=== PATIENT | male | born 1955 | race Caucasian/White ===

== ENCOUNTER → 2021-06-30 15:49 | Outpatient (CLI) | payer MEDICARE, MEDICAID, SELFPAY ==
--- NOTE | 2021-06-30 15:00 | PET_ITS ---
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 COMPARISON EXAMINATION: MRI of the right femur report dated 04/30/21 TECHNIQUE: Following the intravenous administration of 17.8 mCi of F-18 deoxyglucose via the left wrist, multiplanar image acquisitions of the neck, chest, abdomen and pelvis to level of mid thigh, obtained at one hour post radiopharmaceutical administration contemporaneously interpreted with the current CT of the neck, chest, abdomen and pelvis, to level of mid thigh, dated 06/30/21 via coregistration and MRI of the right femur report dated 04/30/21 reveals: BLOOD GLUCOSE LEVEL:?? 117 mg/dl? FINDINGS: 1. There is no quantitative scintigraphic evidence of abnormal increased glucose metabolism on meticulous inspection of whole body acquisitions to include all three axis reconstructions. 2. Normal physiologic distribution of the radiopharmaceutical is apparent in the hepatic and splenic parenchyma, both renal units, bladder and visualized intestinal tract. The visualized portion of the cerebral cortical-subcortical structures demonstrate symmetric and preserved glucose metabolism. Diffuse radiopharmaceutical concentration is noted in all four quadrants of the abdomen and pelvis. Prominent muscle tension artifact is defined in the posterior compartment of the bilateral lower extremities. Asymmetric increased tracer uptake is noted in the distribution of the right masseter musculature. Prominent radiopharmaceutical concentration is identified in the left ventricular myocardium commensurate with the [place]. Pertinent CT findings are as follows: CHEST: There is atherosclerotic calcification defined in the thoracic aorta without evidence of dilatation-aneurysm formation. Coronary arterial calcification is observed. Bilateral axillary soft tissue densities with fatty hilus are ametabolic. Mediastinal soft tissue reveals no evidence of increased tracer uptake. There are no parenchymal densities-nodules defined in the right and left hemithorax demonstrating discernible increased tracer uptake. Mediastinal and bilateral subcentimeter axillary soft tissue densities are ametabolic. ABDOMEN AND PELVIS: There is atherosclerotic calcification defined in the abdominal aorta without evidence of dilatation-aneurysm formation. Abdominal-pelvic arterial calcification is observed. A fat containing right inguinal hernia is noted. Right and left inguinal soft tissue densities with fatty hilus are ametabolic. The prostate gland is prominent in size without evidence of increased tracer uptake. SKELETAL: Degenerative changes are noted in the cervical, thoracic and lumbar spine without evidence of increased radiopharmaceutical concentration. There is diffuse demineralization identified throughout the axial skeletal structures. The apparent primary tumor involving the distal right femur was not included in the field of view-image acquisition. PET/PET/CT Tumor Base -Thigh Init IMPRESSION: 1. NEGATIVE EXAMINATION. There is no definitive quantitative scintigraphic evidence of metastatic/viable neoplasm. Electronic Signature David Mendoza D.O. Accurate Quantification of SUVs for this report are calculated using the exclusive [employer]. (U.S. Patent No. [id number] 983). Standardization and correction of the FDG SUV metric via [employer] technology allow for vendor non-specific objective quantitative examination comparison and optimization of the sensitivity and specificity of the FDG PET-CT examination. Accurate Quantification of SUVs for this report are calculated using the exclusive [employer]. (U.S. Patent No. [id number]). Standardization and correction of the FDG SUV metric via [employer] technology allow for vendor non-specific objective quantitative examination comparison and optimization of the sensitivity and specificity of the FDG PET-CT examination. Electronically Signed: David Mendoza DO at 22:53 EST Tel , Service support ,
== END ==
PROVIDERS: PCP Internal Medicine Infectious Disease; Referring Provider Internal Medicine Infectious Disease; Visit Provider Internal Medicine Infectious Disease
DX: C40.21 Malignant neoplasm of long bones of right lower limb (principal); R93.6 Abnormal findings on diagnostic imaging of limbs
CPT/HCPCS: 78815; A9552

== ENCOUNTER → 2023-05-09 | Outpatient (CLI) | payer MEDICARE, MEDICAID, SELFPAY ==
--- NOTE | 2023-05-09 | ASPOS_PTH ---
PATIENT: TED NELSON LOC: [facility] U#:[id number] AGE/SX: 67/M ROOM: RE05/09/[address]: Dr. John Nixon MD : 1955 BED: DIS: 05/09/2023 SPEC #: [id number] RECD: 05/09/23 12:03 STATUS: MARTIN RERomna #: [id number] AYSE: 05/09/23 00:[address]: John Nixon DEPT: CYTOLOGY RECD BY: Nikko Che ENTERED: 05/09/23 12:04 SP TYPE: ASP HERE OTHR DR: Dr. Steven Bonner MD Tissues: Parotid gland, NOS Procedures: Surgery Specimen Level IV Cytology Other Fine Needle Asp on Site HEADER OPERATION: Fine needle aspiration right cheek mass PRE-OP DIAGNOSIS: Right cheek mass TISSUE SUBMITTED: FNA right cheek mass DIAGNOSIS CYTOLOGY Fine needle aspiration, right cheek mass (smears and cell block): Consistent with benign mixed tumor of salivary gland. AM:jose 05/10/2023 COMMENT Case has been reviewed in consultation with Dr. Abdullahi who concurs with the above diagnosis. IDC:SJ CYTOLOGY STUDY Slides are reviewed. CYTOLOGY GROSS Received is 0.2 ml of yellow-harrison material labeled with the patient's name, and designated right cheek mass. Four imprints and two paps are made from the submitted fluid and the rest is added to CytoLyt for cell block preparation. Submitted for cytology study. / AM:jose 05/09/2023 TC:5 CPT: 57664, 58852, 30059, 05972
== END | disposition home or self-care (01) ==
LOC: LAB 09:15
PROVIDERS: PCP Internal Medicine Infectious Disease; Referring Provider Otolaryngology Otolaryngology/Facial Plastic Surgery; Visit Provider Otolaryngology Otolaryngology/Facial Plastic Surgery
DX: R22.0 Localized swelling, mass and lump, head (principal)
CPT/HCPCS: 10021; 88161; 88305

== ENCOUNTER 2025-08-13 10:10 | Day surgery (SDC) | payer MEDICARE, MEDICAID, SELFPAY ==
--- NOTE | 2025-08-01 20:25 | PAT.ANE_ITS ---
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 When Was Last Pacemaker Check QUESTION #4 FULL TEXT: You/Your Family Experience fever (hyperthermia) with Anesthesia Last Oral Intake Last Oral intake: Last Oral Intake NPO since Meds taken in AM with sips of water? Meds patient instructed to take am of surgery PONV PONV - supervisor receiving and processing: PONV - supervisor receiving and processing Female No 07/31/25 11:27 HX of Motion Sickness No 07/31/25 11:27 HX of N/V After Surgery No 07/31/25 11:27 Non-Smoker No 07/31/25 11:27 Duration of Surgery greater Yes 07/31/25 11:27 than 60 minutes Number of Risk Factors 1 07/31/25 11:27 PONV Score Low Risk 07/31/25 11:27 Respiratory Assessment Respiratory Assessment - supervisor receiving and processing: Respiratory Tract Infection Hx - supervisor receiving and processing Hx Respiratory Tract Infection No 07/31/25 11:27 STOP Sleep Apnea STOP Sleep Apnea - supervisor receiving and processing: STOP Sleep Apnea - supervisor receiving and processing Hx Hypertension Yes 07/31/25 11:27 Hx Sleep Apnea No 07/31/25 11:27 CPAP BIPAP Do you snore loudly (louder No 07/31/25 11:27 than talking or can be heard Do you often feel tired/ No 07/31/25 11:27 fatigued/ sleepy during daytime? Has anyone observed you stop No 07/31/25 11:27 breathing during sleep? STOP Results Negative 07/31/25 11:27 QUESTION #5 FULL TEXT : Do you snore loudly (louder than talking or can be heard through closed doors)? 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 Specify any problems Hx of Preganancy in last 3 N/A 07/31/25 11:27 Months Nurse Filling Out Transfusion DSCHRIBER 07/31/25 11:27 & Questions: Date: 07/31/25 07/31/25 11: Time: 07/31/25 11:27 Patient unable to answer at this time (ie. confused, unrespo /Reproduction History /Reproductive History - supervisor receiving and processing: /Reproductive Hx- supervisor receiving and processing Hx Now Gestational Age (in weeks): EDC: Hx Hx Para Hx Section SAB Does the father of the baby or his family experience fever w Father of the baby Malignant Hypertension history comment PFS Medical History (Updated 07/31/25 @ 11:58 by Joann Gonzalez) Uses wheelchair Lives in detention Wears glasses Wears dentures Bipolar disorder Injury of back TIA (transient ischemic attack) Injury of head and neck Dietary restriction Smoker COPD (chronic obstructive pulmonary disease) Shortness of breath on exertion Cardiology follow-up encounter Thyroid disease Insulin dependent diabetes mellitus Dementia Parkinson disease Hypertension A-fib CKD (chronic kidney disease) Home Medications ?Medication ?Instructions ?Recorded ?Last Taken ?Type acetaminophen 500 mg capsule 1,000 mg PO Q8 06/18/25 U nknown History amiodarone 200 mg tablet 200 mg PO QDAY 06/18/25 Unkn own History apixaban 5 mg tablet (Eliquis) 5 mg PO BID 06/18/25 Un known History aripiprazole 15 mg tablet (Abilify) 15 mg PO QHS 06/18 Unknown History aspirin 81 mg chewable tablet 1 tab PO QDAY 06/18/25 U nknown History atorvastatin 40 mg tablet (Lipitor) 40 mg PO QHS 06/18 Unknown History bumetanide 1 mg tablet 1 mg PO BID 06/18/25 Unknown History carbidopa 25 mg-levodopa 100 mg 1 tab PO TID 06/18/25 Unknown History tablet (Sinemet) cholecalciferol (vitamin D3) 1,250 1,250 mcg PO .QOW 1 Unknown History mcg (50,000 unit) capsule cyanocobalamin (vitamin B-12) 500 2,500 mcg PO QDAY Unknown History mcg tablet (B-12 DOTS) divalproex 500 mg tablet,extended 2,000 mg PO HS 06/18 Unknown History release 24 hr (Depakote ER) famotidine 20 mg tablet 20 mg PO QDAY 06/18/25 Unkno wn History ferrous sulfate 325 mg (65 mg 325 mg PO QDAY 06/18/25 Unknown History iron) tablet (FeroSul) guaifenesin 400 mg tablet 400 mg PO BID 06/18/25 Unkno wn History insulin aspart U-100 100 unit/mL 1 sliding scale dose subcut 06/18/25 Unknown History (3 mL) subcutaneous pen (Novolog USEASDIRECTD FlexPen U-100 Insulin aspart) insulin glargine 100 unit/mL (3 40 unit subcut QPM Unknown History mL) subcutaneous pen (Lantus Solostar U-100 Insulin) isosorbide mononitrate 60 mg 60 mg PO QAM 06/18/25 Unk nown History tablet,extended release 24 hr levetiracetam 500 mg tablet 500 mg PO BID 06/18/25 Unk nown History (Keppra) magnesium 200 mg tablet 400 mg PO QDAY 06/18/25 Unkn own History melatonin 3 mg tablet 9 mg PO QHS 06/18/25 Unknown History metoprolol succinate 25 mg 25 mg PO QDAY 06/18/25 Unkn own History tablet,extended release 24 hr nitroglycerin 0.4 mg sublingual 0.4 mg sublingual Q5M PRN chest 06/18/25 Unknown History tablet (Nitrostat) pain sitagliptin phosphate 50 mg tablet 50 mg PO QDAY 06/18 Unknown History (Januvia) tamsulosin 0.4 mg capsule 0.8 mg PO QHS 06/18/25 Unkno wn History TRIAD HYDROPHILIC PASTE 07/31/25 Unknown History insulin aspart U-100 100 unit/mL 6 unit subcut BID 06/15 Unknown History subcutaneous solution (Novolog U-100 Insulin aspart) levothyroxine 25 mcg capsule 25 mcg PO DAILY 07/31/25 Unknown History mglabozi-tczbsgznf-qpmofbblj 3.5 4 drp EACH EAR Q8H Unknown History mg/mL-10,000 unit/mL-1 % ear solution Allergy/AdvReac Type Severity Reaction Status Date / Time Penicillins Allergy Intermediate Other Verified 07/03/25 14:05 sodium Allergy Unknown PT UNSURE Verified 07/31/25 10:29 OF REACTION Social History Smoking Status: Light Smoker (<10/day) Audit: Pertinent Findings Pertinent Findings EKG Perinent findings: September 22, 2023. Normal sinus rhythm Stress test pertinent findings: September 02, 2022. Normal LV size and systolic function. No EKG signs of ischemia. EF of 51%. Echo (EF%) pertinent findings: 08/19/2022. EF is 60 to 65%. RVSP is 28 to 34 mmHg. Heart catheterization pertinent findings: 08/17/2021. LAD has mild diffuse disease. Consult pertinent findings: 12/11/2024. Dr. Sullivan. 1. Atrial fibrillation-continue amiodarone and apixaban and Toprol. Continue exercise and losing weight. 2. Hypertension-continue current meds. 3. COPD-increase exercise on a weekly basis. 4. Stroke?continue current medications. 5. Diabetes-continue meds Recommendation Anesthesia Recommendation Anesthesia recommendation: OPTIMIZED for anesthesia
--- NOTE | 2025-08-12 12:01 | PAT.ANESEVAL ---
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 When Was Last Pacemaker Check QUESTION #4 FULL TEXT: You/Your Family Experience fever (hyperthermia) with Anesthesia Last Oral Intake Last Oral intake: Last Oral Intake NPO since Meds taken in AM with sips of water? Meds patient instructed to take am of surgery PONV PONV - check out cashier: PONV - check out cashier Female No 07/31/25 11:27 HX of Motion Sickness No 07/31/25 11:27 HX of N/V After Surgery No 07/31/25 11:27 Non-Smoker No 07/31/25 11:27 Duration of Surgery greater Yes 07/31/25 11:27 than 60 minutes Number of Risk Factors 1 07/31/25 11:27 PONV Score Low Risk 07/31/25 11:27 Respiratory Assessment Respiratory Assessment - check out cashier: Respiratory Tract Infection Hx - check out cashier Hx Respiratory Tract Infection No 07/31/25 11:27 STOP Sleep Apnea STOP Sleep Apnea - check out cashier: STOP Sleep Apnea - check out cashier Hx Hypertension Yes 07/31/25 11:27 Hx Sleep Apnea No 07/31/25 11:27 CPAP BIPAP Do you snore loudly (louder No 07/31/25 11:27 than talking or can be heard Do you often feel tired/ No 07/31/25 11:27 fatigued/ sleepy during daytime? Has anyone observed you stop No 07/31/25 11:27 breathing during sleep? STOP Results Negative 07/31/25 11:27 QUESTION #5 FULL TEXT : Do you snore loudly (louder than talking or can be heard through closed doors)? 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 Specify any problems Hx of Preganancy in last 3 N/A 07/31/25 11:27 Months Nurse Filling Out Transfusion DSCHRIBER 07/31/25 11:27 & Questions: Date: 07/31/25 07/31/25 11: Time: 07/31/25 11:27 Patient unable to answer at this time (ie. confused, unrespo /Reproduction History /Reproductive History - check out cashier: /Reproductive Hx- check out cashier Hx Now Gestational Age (in weeks): EDC: Hx Hx Para Hx Section SAB Does the father of the baby or his family experience fever w Father of the baby Malignant Hypertension history comment Active Medications Active Medications: Current Medications Generic Name Dose Route Start Last Admin Trade Name Freq PRN Reason Stop Dose Admin Vancomycin HCl 1,750 mg/ 535 mls @ 250 mls/hr 08/13/25 12:00 Sodium Chloride IV 08/13/25 14:08 INTRAOP [facility] Medical History (Updated 07/31/25 @ 11:58 by Joann Gonzalez) Uses wheelchair Lives in longterm Wears glasses Wears dentures Bipolar disorder Injury of back TIA (transient ischemic attack) Injury of head and neck Dietary restriction Smoker COPD (chronic obstructive pulmonary disease) Shortness of breath on exertion Cardiology follow-up encounter Thyroid disease Insulin dependent diabetes mellitus Dementia Parkinson disease Hypertension A-fib CKD (chronic kidney disease) Home Medications ?Medication ?Instructions ?Recorded ?Last Taken ?Type acetaminophen 500 mg capsule 1,000 mg PO Q8 06/18/25 Unknown History amiodarone 200 mg tablet 200 mg PO QDAY 06/18/25 Unknown History apixaban 5 mg tablet (Eliquis) 5 mg PO BID 06/18/25 Unknown History aripiprazole 15 mg tablet (Abilify) 15 mg PO QHS 06/18/25 Unknown History aspirin 81 mg chewable tablet 1 tab PO QDAY 06/18/25 Unknown History atorvastatin 40 mg tablet (Lipitor) 40 mg PO QHS 06/18/25 Unknown History bumetanide 1 mg tablet 1 mg PO BID 06/18/25 Unknown History carbidopa 25 mg-levodopa 100 mg 1 tab PO TID 06/18/25 Unknown History tablet (Sinemet) cholecalciferol (vitamin D3) 1,250 1,250 mcg PO .QOW 06/18/25 Unknown History mcg (50,000 unit) capsule cyanocobalamin (vitamin B-12) 500 2,500 mcg PO QDAY 06/18/25 Unknown History mcg tablet (B-12 DOTS) divalproex 500 mg tablet,extended 2,000 mg PO HS 06/18/25 Unknown History release 24 hr (Depakote ER) famotidine 20 mg tablet 20 mg PO QDAY 06/18/25 Unknown History ferrous sulfate 325 mg (65 mg 325 mg PO QDAY 06/18/25 Unknown History iron) tablet (FeroSul) guaifenesin 400 mg tablet 400 mg PO BID 06/18/25 Unknown History insulin aspart U-100 100 unit/mL 1 sliding scale dose subcut 06/18/25 Unknown History (3 mL) subcutaneous pen (Novolog USEASDIRECTD FlexPen U-100 Insulin aspart) insulin glargine 100 unit/mL (3 40 unit subcut QPM 06/18/25 Unknown History mL) subcutaneous pen (Lantus Solostar U-100 Insulin) isosorbide mononitrate 60 mg 60 mg PO QAM 06/18/25 Unknown History tablet,extended release 24 hr levetiracetam 500 mg tablet 500 mg PO BID 06/18/25 Unknown History (Keppra) magnesium 200 mg tablet 400 mg PO QDAY 06/18/25 Unknown History melatonin 3 mg tablet 9 mg PO QHS 06/18/25 Unknown History metoprolol succinate 25 mg 25 mg PO QDAY 06/18/25 Unknown History tablet,extended release 24 hr nitroglycerin 0.4 mg sublingual 0.4 mg sublingual Q5M PRN chest 06/18/25 Unknown History tablet (Nitrostat) pain sitagliptin phosphate 50 mg tablet 50 mg PO QDAY 06/18/25 Unknown History (Januvia) tamsulosin 0.4 mg capsule 0.8 mg PO QHS 06/18/25 Unknown History TRIAD HYDROPHILIC PASTE 07/31/25 Unknown History insulin aspart U-100 100 unit/mL 6 unit subcut BID 07/31/25 Unknown History subcutaneous solution (Novolog U-100 Insulin aspart) levothyroxine 25 mcg capsule 25 mcg PO DAILY 07/31/25 Unknown History przxwaqb-noecxrptz-lsrzizhrz 3.5 4 drp EACH EAR Q8H 07/31/25 Unknown History mg/mL-10,000 unit/mL-1 % ear solution Allergy/AdvReac Type Severity Reaction Status Date / Time Penicillins Allergy Intermediate Other Verified 07/03/25 14:05 sodium Allergy Unknown PT UNSURE Verified 07/31/25 10:29 OF REACTION Social History Smoking Status: Light Smoker (<10/day) Audit: Pertinent Findings HISTORY of Pertinent Findings History of Pertinent Findings: EKG Pertinent Findings EKG Perinent findings September 22, 2023. Normal 08/01/25 20:34 sinus rhythm Stress Test Pertinent Findings Stress test pertinent findings September 02, 2022. Normal LV 08/01/25 20:41 size and systolic function. No EKG signs of ischemia. EF of 51%. Echo Pertinent Findings Echo (EF%) pertinent findings 08/19/2022. EF is 60 to 65% 08/01/25 20:41 . RVSP is 28 to 34 mmHg. Heart Catheterization Pertinent Findings Heart catheterization 08/17/2021. LAD has mild 08/01/25 20:41 pertinent findings diffuse disease. Consult Pertinent Findings Consult pertinent findings 12/11/2024. Dr. Sullivan. 08/01/25 20:41 1. Atrial fibrillation- continue amiodarone and apixaban and Toprol. Continue exercise and losing weight. 2. Hypertension-continue current meds. 3. COPD-increase exercise on a weekly basis. 4. Stroke?continue current medications. 5. Diabetes-continue meds Pertinent Findings Additional pertinent findings: Hemoglobin 7.9 g/dL. 08/12/2025. Anemia of chronic disease. End-stage renal disease. Recommendation Anesthesia Recommendation Anesthesia recommendation: OPTIMIZED for anesthesia
[2025-08-13] VITALS (9 sets, daily range): BP systolic 85–163; BP diastolic 45–77; PULSE 58–61; RESP 16–18; TEMP 36.1–36.5; O2SAT 97–100; BMI 31.3
[2025-08-13] MEDS: 0.9% Normal Saline (500mL Bag) 500 ML 15 ML IV (10:47)
[2025-08-13] MEDS: Vancomycin HCl 1,750 MG in 0.9% Normal Saline (500mL Bag) 500 ML 250 MG IV (10:57)
--- NOTE | 2025-08-13 10:58 | PCM.PRE.AN2 ---
ASA Classification* ASA Classification ASA Classification: 4 Assessment & Plan Anesthesia* Anesthesia Assessment Anesthesia Assessment: Discussed sedation and/or anesthesia options, risks, benefits, and alternatives with patient/parents/legal guardian/POA. Questions invited. The patient/parents/legal guardian/POA seems to understand and agrees to proceed with anesthesia plan. Reviewed the physical assessment, medical history, allergy history and patient home medications list prior to surgery/procedure/anesthetic and documented any changes. Performed airway and anesthesia risk assessments. Anesthesia Type Anesthesia Type: MAC History Source History Obtained from:: Patient and Chart Anesthesia Focused Assessment* Temperature: 97.7 F Pulse Rate: 60 Blood Pressure: 163/77 Respiratory Rate: 18 Pulse Ox: 97 Oxygen Delivery Method: Room Air Airway Assessment Mouth opens: >3 cm Mallampati Score: IV Teeth Condition: Dentures (Patient has full upper and lower dentures. They will come out.) Neck Range of motion (ROM): Limited ROM (Severe Restriction) Labs Anesthesia Preop lab: CBC CHEMISTRY COAG Lab additional comments: 08/12/2025. Hemoglobin 7.9, creatinine 4.2, potassium is 3.6. Pre-Assessment Diagnosis/Proposed Procedure Planned Operative Procedure(s): LEFT UPPER ARM AV FISTULA CREATION Anesthesia History Anesthesia History - prenatal genetic counselor: Anesthesia History - prenatal genetic counselor Hx Hospitalization No 07/31/25 11:27 Any Problems With Anesthesia No 07/31/25 11:27 Cholinesterase deficiency No 07/31/25 11:27 You/Your Family Experience No 07/31/25 11:27 fever (hyperthermia) with Relationship Recent Exposure to Contagious No 08/13/25 10:40 Disease Does patient have nerve No 07/31/25 11:27 stimulator Patient instructed to have device shut off --Does patient have Pacemaker No 08/13/25 10:40 or ICD? When Was Last Pacemaker Check QUESTION #4 FULL TEXT: You/Your Family Experience fever (hyperthermia) with Anesthesia Last Oral Intake Last Oral intake: Last Oral Intake NPO since 22:00 08/13/25 10:40 Meds taken in AM with sips of No 08/13/25 10:40 water? Meds patient instructed to take am of surgery PONV PONV - prenatal genetic counselor: PONV - prenatal genetic counselor Female No 07/31/25 11:27 HX of Motion Sickness No 07/31/25 11:27 HX of N/V After Surgery No 07/31/25 11:27 Non-Smoker No 07/31/25 11:27 Duration of Surgery greater Yes 07/31/25 11:27 than 60 minutes Number of Risk Factors 1 07/31/25 11:27 PONV Score Low Risk 07/31/25 11:27 Height & Weight Height & Weight: Anesthesia: Height & Weight Height 6 ft 1 in 08/13/25 10:40 Weight: 107.8 kg 08/13/25 10:40 Body Mass Index (BMI) 31.3 08/13/25 10:40 Respiratory Assessment Respiratory Assessment - prenatal genetic counselor: Respiratory Tract Infection Hx - prenatal genetic counselor Hx Respiratory Tract Infection No 07/31/25 11:27 STOP Sleep Apnea STOP Sleep Apnea - prenatal genetic counselor: STOP Sleep Apnea - prenatal genetic counselor Hx Hypertension Yes 07/31/25 11:27 Hx Sleep Apnea No 07/31/25 11:27 CPAP BIPAP Do you snore loudly (louder No 07/31/25 11:27 than talking or can be heard Do you often feel tired/ No 07/31/25 11:27 fatigued/ sleepy during daytime? Has anyone observed you stop No 07/31/25 11:27 breathing during sleep? STOP Results Negative 07/31/25 11:27 QUESTION #5 FULL TEXT : Do you snore loudly (louder than talking or can be heard through closed doors)? 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 Specify any problems Hx of Preganancy in last 3 N/A 12/10/25 11:27 Months Nurse Filling Out Transfusion DSCHRIBER 07/31/25 11:27 & Questions: Date: 07/31/25 07/31/25 11:27 Time: 11:07/31/25 11:27 Patient unable to answer at this time (ie. confused, unrespo /Reproduction History /Reproductive History - prenatal genetic counselor: /Reproductive Hx- prenatal genetic counselor Hx Now Gestational Age (in weeks): EDC: Hx Hx Para Hx Section SAB Does the father of the baby or his family experience fever w Father of the baby Malignant Hypertension history comment Active Medications Active Medications: Current Medications Generic Name Dose Route Start Last Admin Trade Name Freq PRN Reason Stop Dose Admin Vancomycin HCl 1,750 mg/ 535 mls @ 250 mls/hr 08/13/25 12:00 08/13/25 10:57 Sodium Chloride IV 08/13/25 14:08 250 mls/hr INTRAOP ONE Administration Sodium Chloride 500 mls @ 0 mls/hr 08/13/25 10:30 08/13/25 10:47 IV 15 mls/hr .Q0M JOESPH Administration KVO PFSH Medical History Uses wheelchair Lives in usp Wears glasses Wears dentures Bipolar disorder Injury of back TIA (transient ischemic attack) Injury of head and neck Dietary restriction Smoker COPD (chronic obstructive pulmonary disease) Shortness of breath on exertion Cardiology follow-up encounter Thyroid disease Insulin dependent diabetes mellitus Dementia Parkinson disease Hypertension A-fib CKD (chronic kidney disease) Home Medications ?Medication ?Instructions ?Recorded ?Last Taken ?Type acetaminophen 500 mg capsule 1,000 mg PO Q8 06/18/25 Unknown History amiodarone 200 mg tablet 200 mg PO QDAY 06/18/25 Unknown History apixaban 5 mg tablet (Eliquis) 5 mg PO BID 06/18/25 08/09/25 History aripiprazole 15 mg tablet (Abilify) 15 mg PO QHS 06/18/25 Unknown History aspirin 81 mg chewable tablet 1 tab PO QDAY 06/18/25 Unknown History atorvastatin 40 mg tablet (Lipitor) 40 mg PO QHS 06/18/25 Unknown History bumetanide 1 mg tablet 1 mg PO BID 06/18/25 Unknown History carbidopa 25 mg-levodopa 100 mg 1 tab PO TID 06/18/25 Unknown History tablet (Sinemet) cholecalciferol (vitamin D3) 1,250 1,250 mcg PO .QOW 06/18/25 Unknown History mcg (50,000 unit) capsule cyanocobalamin (vitamin B-12) 500 2,500 mcg PO QDAY 06/18/25 Unknown History mcg tablet (B-12 DOTS) divalproex 500 mg tablet,extended 2,000 mg PO HS 06/18/25 Unknown History release 24 hr (Depakote ER) famotidine 20 mg tablet 20 mg PO QDAY 06/18/25 Unknown History ferrous sulfate 325 mg (65 mg 325 mg PO QDAY 06/18/25 Unknown History iron) tablet (FeroSul) guaifenesin 400 mg tablet 400 mg PO BID 06/18/25 Unknown History insulin aspart U-100 100 unit/mL 1 sliding scale dose subcut 06/18/25 Unknown History (3 mL) subcutaneous pen (Novolog USEASDIRECTD FlexPen U-100 Insulin aspart) insulin glargine 100 unit/mL (3 40 unit subcut QPM 06/18/25 Unknown History mL) subcutaneous pen (Lantus Solostar U-100 Insulin) isosorbide mononitrate 60 mg 60 mg PO QAM 06/18/25 Unknown History tablet,extended release 24 hr levetiracetam 500 mg tablet 500 mg PO BID 06/18/25 Unknown History (Keppra) magnesium 200 mg tablet 400 mg PO QDAY 06/18/25 Unknown History melatonin 3 mg tablet 9 mg PO QHS 06/18/25 Unknown History metoprolol succinate 25 mg 25 mg PO QDAY 06/18/25 Unknown History tablet,extended release 24 hr nitroglycerin 0.4 mg sublingual 0.4 mg sublingual Q5M PRN chest 06/18/25 Unknown History tablet (Nitrostat) pain sitagliptin phosphate 50 mg tablet 50 mg PO QDAY 06/18/25 Unknown History (Januvia) tamsulosin 0.4 mg capsule 0.8 mg PO QHS 06/18/25 Unknown History TRIAD HYDROPHILIC PASTE 07/31/25 Unknown History insulin aspart U-100 100 unit/mL 6 unit subcut BID 07/31/25 Unknown History subcutaneous solution (Novolog U-100 Insulin aspart) levothyroxine 25 mcg capsule 25 mcg PO DAILY 07/31/25 Unknown History [id number] 3.5 4 drp EACH EAR Q8H 07/31/25 Unknown History mg/mL-10,000 unit/mL-1 % ear solution Allergy/AdvReac Type Severity Reaction Status Date / Time Penicillins Allergy Intermediate Other Verified 08/13/25 10:36 Surgical History no surgical history no surgical history Social History Smoking Status: Current every day smoker (Patient smoked today.) Review of Systems (Anesthesia) ROS Narrative System reviewed and no additional complaints, except as documented.
--- NOTE | 2025-08-13 11:29 | PCM.HP.STD ---
HPI - General HPI Narrative TED NELSON, is a 70 M who presents for AVF creation. He presents from SNF accompanied by SNF aide. He is not currently on dialysis, but they anticipate he may require dialysis in the next 6 months or so. He has never had dialysis before. He denies any history of PICC lines/medports, radiation to the chest/neck, prior upper extremity surgery, pacemaker/ICD, upper extremity DVT. He reports he probably injured his arm or clavicle when he was younger but isn't certain, never had to have any surgical repair though. He is right hand dominant. His medical history is otherwise significant for diabetes, HTN, Afib, CHF, parkinson's, chronic anemia. [facility] Medical History Uses wheelchair Lives in alf Wears glasses Wears dentures Bipolar disorder Injury of back TIA (transient ischemic attack) Injury of head and neck Dietary restriction Smoker COPD (chronic obstructive pulmonary disease) Shortness of breath on exertion Cardiology follow-up encounter Thyroid disease Insulin dependent diabetes mellitus Dementia Parkinson disease Hypertension A-fib CKD (chronic kidney disease) Home Medications ?Medication ?Instructions ?Recorded ?Last Taken ?Type acetaminophen 500 mg capsule 1,000 mg PO Q8 06/18/25 Unknown History amiodarone 200 mg tablet 200 mg PO QDAY 06/18/25 Unknown History apixaban 5 mg tablet (Eliquis) 5 mg PO BID 06/18/25 08/09/25 History aripiprazole 15 mg tablet (Abilify) 15 mg PO QHS 06/18/25 Unknown History aspirin 81 mg chewable tablet 1 tab PO QDAY 06/18/25 Unknown History atorvastatin 40 mg tablet (Lipitor) 40 mg PO QHS 06/18/25 Unknown History bumetanide 1 mg tablet 1 mg PO BID 06/18/25 Unknown History carbidopa 25 mg-levodopa 100 mg 1 tab PO TID 06/18/25 Unknown History tablet (Sinemet) cholecalciferol (vitamin D3) 1,250 1,250 mcg PO .QOW 06/18/25 Unknown History mcg (50,000 unit) capsule cyanocobalamin (vitamin B-12) 500 2,500 mcg PO QDAY 06/18/25 Unknown History mcg tablet (B-12 DOTS) divalproex 500 mg tablet,extended 2,000 mg PO HS 06/18/25 Unknown History release 24 hr (Depakote ER) famotidine 20 mg tablet 20 mg PO QDAY 06/18/25 Unknown History ferrous sulfate 325 mg (65 mg 325 mg PO QDAY 06/18/25 Unknown History iron) tablet (FeroSul) guaifenesin 400 mg tablet 400 mg PO BID 06/18/25 Unknown History insulin aspart U-100 100 unit/mL 1 sliding scale dose subcut 06/18/25 Unknown History (3 mL) subcutaneous pen (Novolog USEASDIRECTD FlexPen U-100 Insulin aspart) insulin glargine 100 unit/mL (3 40 unit subcut QPM 06/18/25 Unknown History mL) subcutaneous pen (Lantus Solostar U-100 Insulin) isosorbide mononitrate 60 mg 60 mg PO QAM 06/18/25 Unknown History tablet,extended release 24 hr levetiracetam 500 mg tablet 500 mg PO BID 06/18/25 Unknown History (Keppra) magnesium 200 mg tablet 400 mg PO QDAY 06/18/25 Unknown History melatonin 3 mg tablet 9 mg PO QHS 06/18/25 Unknown History metoprolol succinate 25 mg 25 mg PO QDAY 06/18/25 Unknown History tablet,extended release 24 hr nitroglycerin 0.4 mg sublingual 0.4 mg sublingual Q5M PRN chest 06/18/25 Unknown History tablet (Nitrostat) pain sitagliptin phosphate 50 mg tablet 50 mg PO QDAY 06/18/25 Unknown History (Januvia) tamsulosin 0.4 mg capsule 0.8 mg PO QHS 06/18/25 Unknown History TRIAD HYDROPHILIC PASTE 07/31/25 Unknown History insulin aspart U-100 100 unit/mL 6 unit subcut BID 07/31/25 Unknown History subcutaneous solution (Novolog U-100 Insulin aspart) levothyroxine 25 mcg capsule 25 mcg PO DAILY 07/31/25 Unknown History simzceqx-tbqxrlbkq-rpqjeixym 3.5 4 drp EACH EAR Q8H 07/31/25 Unknown History mg/mL-10,000 unit/mL-1 % ear solution Allergy/AdvReac Type Severity Reaction Status Date / Time Penicillins Allergy Intermediate Other Verified 08/13/25 10:36 Surgical History no surgical history Social History Smoking Status: Current every day smoker (Patient smoked today.) ROS Constitutional Constitutional: Denies chills, fever(s), frequent falls, lethargy or weakness Eyes Eyes: Denies blind spots, change in vision or loss of vision ENT HEENT: Denies bleeding gums, hoarseness or sore throat Cardiovascular Cardiovascular: Denies abdominal pain, bluish discoloration of hand/feet, chest pain with activity, claudication, cold extremities, cyanosis, dyspnea on exertion, erythema on extremities, irregular heart rhythm, leg edema, leg ulcers, numbness in extremities or weakness in extremities Respiratory/Chest Respiratory/Chest: Denies cough, excessive phlegm production, shortness of breath at rest, shortness of breath with exertion or wheezing Gastrointestinal Gastrointestinal: Denies anorexia, change in stool character, constipation, diarrhea, melena or rectal bleeding Genitourinary Genitourinary: Denies dysuria or hematuria Musculoskeletal Musculoskeletal: Denies abnormal gait Integumentary Integumentary: Reports other Details: ; Denies erythema, non-healing lesions or wounds Neurologic Neurologic: Denies abnormal speech, focal weakness, headache(s), loss of vision, numbness, paresthesias or sensory deficit Hematologic/Lymphatic Hematologic/Lymphatic: Denies easy bleeding, easy bruising or lymphadenopathy Patient's Goals Of Care . What would you like to achieve or improve as a result of your hospital stay?: wtf Vital Signs Vital Signs Vital Signs: 08/13/25 10:40 08/13/25 10:40 08/13/25 10:40 Temperature 97.7 F L Temperature Source Temporal Pulse Rate 60 Respiratory Rate 18 Respiratory Pattern Normal Blood Pressure 163/77 H Blood Pressure Mean 105 Blood Pressure Source Monitor Blood Pressure Position Sitting Blood Pressure Location Right Arm Baseline BP 163/77 Pulse Ox 97 Oxygen Delivery Method Room Air 08/13/25 11:09 Temperature 97.7 F L Temperature Source Pulse Rate 60 Respiratory Rate 18 Respiratory Pattern Blood Pressure 163/77 H Blood Pressure Mean Blood Pressure Source Blood Pressure Position Blood Pressure Location Baseline BP Pulse Ox 97 Oxygen Delivery Method Room Air Weight Weight: 237 lb 10.533 oz Body Mass Index (BMI) 31.3 Physical Exam Const alert, oriented x3, no apparent distress and healthy appearing General Appearance: cooperative; Negative for combative or lethargic Orientation / Consciousness: awake Exam Limitations: no limitations HEENT Head and Scalp: normocephalic and atraumatic Eyes EOMs intact bilaterally General Eye: normal appearance of both eyes Neck full ROM General: trachea midline Resp normal respiratory effort and no use of accessory muscles Effort and Inspection: Negative for labored, stridor or audible wheezes Cardio regular rate and regular rhythm Peripheral Pulses: brachial pulses present and radial pulses present Back/Spine Cervical Spine: cervical ROM normal Extremity full ROM, normal capillary refill and no clubbing, cyanosis or edema Skin no rashes or lesions noted and no wounds Neuro oriented x3, CN's II-XII intact bilaterally, no focal motor deficits and no sensory deficits noted Psych thought process normal, cooperative, affect normal, speech normal and activity/motor behavior normal Assessment & Plan Assessment/Plan (1) CKD (chronic kidney disease): QUALIFIERS: Chronic kidney disease stage: stage 5 (GFR < 15), not on chronic dialysis Qualified Code(s): N18.5 - Chronic kidney disease, stage 5 PLAN: -left arm fistula creation
[2025-08-13] MEDS: 0.9% Normal Saline (1000mL) 200 ML IV (11:33)
[2025-08-13] MEDS: Lidocaine 1% (5 ml sdv) 5 ML Vial IV (11:36)
[2025-08-13] MEDS: fentaNYL 100 MCG/2 ML Ampul IV (12:12)
[2025-08-13] MEDS: Heparin Injection (Vial) 5,000 UNIT/ML VIAL 9000 UNIT IV (12:33)
[2025-08-13] MEDS: Lidocaine 1% (30 ml sdv) 30 ML Vial (12:35)
--- NOTE | 2025-08-13 13:25 | DCINST_ITS ---
Discharge Instructions Diet Discharge Diet: Renal Diet Activity May shower in (days): 2 Lifting Restrictions: do not lift > 20 lbs with left arm for 2 weeks Additional Activity Instructions:: do not submerge incision for 2 weeks Dressing / Incision Call your doctor if your incision/area has: Sudden Increased Bleeding, Increased Pain/ Swelling, Increased Redness and Foul Smelling Discharge Call your doctor if you observe: Coldness, Increased Pain and Numbness or Tingling Remove Dressing in: 2 days Cleanse incision/area with: Soap & Water Follow Up Care Test Results: Test results from this visit will be discussed in further detail at your follow- up appointment, if applicable. Discharge Plan Admission Attending Provider: Jam Blanco Primary Care Provider: Steven Bonner Instructions Print Language: British Discharge Orders/Prescriptions Prescriptions: New oxycodone 5 mg tablet 5 mg PO Q8H PRN (Reason: pain) 1 Days Qty: 3 0RF Continued atorvastatin [Lipitor] 40 mg tablet 40 mg PO QHS amiodarone 200 mg tablet 200 mg PO QDAY levetiracetam [Keppra] 500 mg tablet 500 mg PO BID melatonin 3 mg tablet 9 mg PO QHS isosorbide mononitrate 60 mg tablet extended release 24 hr 60 mg PO QAM famotidine 20 mg tablet 20 mg PO QDAY cyanocobalamin (vitamin B-12) [B-12 DOTS] 500 mcg tablet 2,500 mcg PO QDAY tamsulosin 0.4 mg capsule 0.8 mg PO QHS ferrous sulfate [FeroSul] 325 mg (65 mg iron) tablet 325 mg PO QDAY divalproex [Depakote ER] 500 mg tablet extended release 24 hr 2,000 mg PO HS nitroglycerin [Nitrostat] 0.4 mg tablet, sublingual 0.4 mg sublingual Q5M PRN (Reason: chest pain) Rx Instructions: do not exceed 3 doses per episode aspirin 81 mg tablet,chewable 1 tab PO QDAY bumetanide 1 mg tablet 1 mg PO BID metoprolol succinate 25 mg tablet extended release 24 hr 25 mg PO QDAY carbidopa-levodopa [Sinemet] 25-100 mg tablet 1 tab PO TID acetaminophen 500 mg capsule 1,000 mg PO Q8 magnesium 200 mg tablet 400 mg PO QDAY aripiprazole [Abilify] 15 mg tablet 15 mg PO QHS guaifenesin 400 mg tablet 400 mg PO BID insulin aspart U-100 [Novolog FlexPen U-100 Insulin] 100 unit/mL (3 mL) insulin pen 1 sliding scale dose subcut USEASDIRECTD Januvia 50 mg tablet 50 mg PO QDAY cholecalciferol (vitamin D3) 1,250 mcg (50,000 unit) capsule 1,250 mcg PO .QOW insulin glargine [Lantus Solostar U-100 Insulin] 100 unit/mL (3 mL) insulin pen 40 unit subcut QPM levothyroxine 25 mcg capsule 25 mcg PO DAILY [id number]-[id number] 3.5-10,000-1 mg/mL-unit/mL-% solution 4 drp EACH EAR Q8H insulin aspart U-100 [Novolog U-100 Insulin aspart] 100 unit/mL solution 6 unit subcut BID TRIAD HYDROPHILIC PASTE Held Eliquis 5 mg tablet 5 mg PO BID Hold Instructions: Resume on 08/15/25. Referrals / Follow Up: Steven Bonner MD [Primary Care Provider, Internal Medicine] Disposition Disposition (needs filled in before D/C Order can be placed): Home, Self Care
--- NOTE | 2025-08-13 15:03 | OP.PCM_ITS ---
Operative Report (Standard) Operative Information Date of Procedure: 08/13/25 Pre-Operative Diagnosis: Chronic kidney disease not yet on dialysis Post-Operative Diagnosis: Same Surgery/Procedure Performed: Left upper arm fistula creation with dual outflow via the cephalic and basilic oracle business analyst: Yes Electro Mechanical Assembler: Oksana Pizano Tasks completed by child center assistant: Opening, Closing, Opening & closing, Hemostasis: Tie and Retracting Type of Anesthesia: Local MAC, Local and MAC RN Documented Start/Stop Times: Operation Date: 08/13/25 12:00 Case Time Into Pre-Op 08/13/25 10:17 Out of Pre-Op 08/13/25 11:29 Anesthesia Start 08/13/25 11:33 Into Room 08/13/25 11:33 Procedure Start 08/13/25 12:13 Procedure End 08/13/25 13:37 Anesthesia End 08/13/25 13:42 Out of Room 08/13/25 13:42 Into Recovery 08/13/25 13:45 Into Phase II Recovery 08/13/25 14:13 Out of Recovery 08/13/25 14:13 Procedure Start Time: 12:15 Procedure Stop Time: 13:35 Select all DRAINS/GRAFTS/IMPLANTS that apply: None Estimated Blood Loss: 4 Specimen collected: No Description of surgery: HPI: Patient is a 70-year-old male with chronic kidney disease not yet on dialysis. He had vein mapping which revealed satisfactory upper arm cephalic and basilic vein and an adequate brachial artery. He presents now for fistula creation. Description of procedure: Upon obtaining informed consent and verification correct patient procedure site the patient was taken to the operating where he was positioned prepped and draped in usual sterile fashion. Moderate sedation was administered by anesthesia and timeout was performed. Ultrasound was used to evaluate the vasculature of the left upper extremity. The forearm cephalic vein was marginal as indicated on the preop vein mapping. The radial artery at the wrist was also small in caliber and appeared to have significant calcification. The upper arm cephalic vein was adequate in caliber though the basilic vein was larger throughout with a high confluence with the brachial vein in the axilla. There was complete communication between the maintenance apprentice vein in both the cephalic and basilic vein. It was felt that anastomosis of the maintenance apprentice vein to the brachial artery would provide two-vessel outflow and potentially with time either vessel or both could be mature and become a satisfactory fistula. Skin overlying the vessels distal to the antecubital crease was anesthetized 1% lidocaine and transverse incision made. Bovie was used to dissect down through subcutaneous tissue and self-retaining retractors put in position. Further dissection was carried down until the cubital branches and their connection to the maintenance apprentice vein was identified. Sharp dissection then used to dissect free and sidebranches ligated with silk ties and divided. Further dissection then carried down to level the fascia which is incised in a cruciate configuration exposing the brachial neurovascular bundle. Sharp dissection to dissect free the vessel proximal and distal with care taken identify and protect adjacent nerve and vein structures. A writing was used to place a vessel loop and the patient heparinized allowed circulate for 3 minutes. Longitudinal arteriotomy was created with 11 blade extended with Kunz scissors. The maintenance apprentice vein was then ligated distally with silk ties and divided. It was then dilated up to 3-1/2 mm and flushed with heparinized saline. The vein was then beveled to match the arteriotomy and anastomosis performed using a 6-0 Prolene in a running fashion. Prior to coming the suture line vessels were backbled after completing suture line clamps removed and satisfactory hemostasis was observed. There is palpable thrill in the maintenance apprentice vein into the cubital branches and ultimately into the outflow basilic and cephalic veins in the upper arm. A branch communicating antegrade to the forearm was then ligated with silk ties. Heparin was then reversed with protamine and incision inspected for hemostasis. The incision was then closed with 3-0 Vicryl, 4 Monocryl and Dermabond for the skin. Patient was then awakened anesthesia taken recovery room with anticipated discharge to his intermediate facility. Surgical Findings: Palpable radial pulse, palpable thrill in the cephalic vein and basilic vein Complications Complications: No
--- NOTE | 2025-08-13 16:07 | PCM.POST.ANE ---
Anesthesia: Postop Eval I Current Vital Signs Temperature: 97 F Pulse Rate: 61 Blood Pressure: 112/50 Respiratory Rate: 16 Pulse Ox: 97 Oxygen Delivery Method: Room Air Assessment Airway patent: Yes Spontaneous unlabored respirations: Yes Mental status: Awake and Calm nausea: No Vomiting: No Anesthesia Complication: No Fluid Hydration Crystalloid volume administer (ml): 200 Total IV fluid infused: 200 Progress Note Anesthesia document: Postop Eval 1 completed: Yes
--- NOTE | 2025-08-13 18:29 | POSTOPAN2_ITS ---
Anesthesia Postop Eval I Sum Postop Eval Completion status Anesthesia document: Postop Eval 1 completed: Yes Anesthesia Postop Eval I Summary Anesthesia Postop Eval I Summary: Anesthesia Postop Eval I: Assessment Summary Airway patent Yes 08/13/25 16:07 [email or web address] Spontaneous unlabored Yes 08/13/25 16:07 [email or web address] respirations Mental status Awake,Calm 08/13/25 16:07 [email or web address] nausea No 08/13/25 16:07 [email or web address] Vomiting No 08/13/25 16:07 [email or web address] Anesthesia Postop Eval I: Fluid Summary Crystalloid volume administer 200 08/13/25 16:07 [email or web address] (ml) Colloids volume administered ( ml) Blood Product volume administered (ml) Total IV fluid infused 200 08/13/25 16:07 [email or web address] Anesthesia Postop Eval I: Summary Notes Anesthesia Complication No 08/13/25 16:07 [email or web address] Anesthesia Complication Comment: Post-operative progress note Anesthesia: Postop Eval II Evaluation Mental status: Awake and Calm Pain Level: 2 nausea: No Vomiting: No Complications Anesthesia Complication: No
--- NOTE | 2025-08-13 18:29 | PCM.POSTANE2 ---
Anesthesia Postop Eval I Sum Postop Eval Completion status Anesthesia document: Postop Eval 1 completed: Yes Anesthesia Postop Eval I Summary Anesthesia Postop Eval I Summary: Anesthesia Postop Eval I: Assessment Summary Airway patent Yes 08/13/25 16:07 [email or web address] Spontaneous unlabored Yes 08/13/25 16:07 CLINICAL [email or web address] respirations Mental status Awake,Calm 08/13/25 16:07 [email or web address] nausea No 08/13/25 16:07 [email or web address] Vomiting No 08/13/25 16:07 [email or web address] Anesthesia Postop Eval I: Fluid Summary Crystalloid volume administer 200 08/13/25 16:07 [email or web address] (ml) Colloids volume administered ( ml) Blood Product volume administered (ml) Total IV fluid infused 200 08/13/25 16:07 [email or web address] Anesthesia Postop Eval I: Summary Notes Anesthesia Complication No 08/13/25 16:07 [email or web address] Anesthesia Complication Comment: Post-operative progress note Anesthesia: Postop Eval II Evaluation Mental status: Awake and Calm Pain Level: 2 nausea: No Vomiting: No Complications Anesthesia Complication: No
== END 2025-08-13 15:06 | disposition home or self-care (01) ==
LOC: SDC 10:13 → AC 10:15
PROVIDERS: PCP Internal Medicine Infectious Disease; Referring Provider Surgery Trauma Surgery; Visit Provider Surgery Trauma Surgery
PROC: (CPT 36821; principal; 2025-08-13 11:45)
DX: I13.2 Hypertensive heart and chronic kidney disease with heart failure and with stage 5 chronic kidney disease, or end stage renal disease (principal); N18.5 Chronic kidney disease, stage 5; G20.C Parkinsonism, unspecified; I50.9 Heart failure, unspecified; F31.9 Bipolar disorder, unspecified; J44.9 Chronic obstructive pulmonary disease, unspecified; Z79.4 Long term (current) use of insulin; E11.22 Type 2 diabetes mellitus with diabetic chronic kidney disease; F17.200 Nicotine dependence, unspecified, uncomplicated; Z79.01 Long term (current) use of anticoagulants; Z79.82 Long term (current) use of aspirin; Z86.73 Personal history of transient ischemic attack (TIA), and cerebral infarction without residual deficits; Z86.718 Personal history of other venous thrombosis and embolism
CPT/HCPCS: 36821; 01844; 82962; A4648; J2405